=== PATIENT | female | born 1965 | race Caucasian/White ===

== ENCOUNTER 2022-08-30 16:09 | Outpatient (REF) | payer OTHER, SELFPAY ==
--- NOTE | ~2022-08-30 | XR_ITS ---
EXAMINATION: XR SHOULDER, LEFT CLINICAL INFORMATION: Pain left shoulder COMPARISON: None TECHNIQUE: AP external rotation, Grashey, scapular Y, and axillary views of the left shoulder. FINDINGS: No fracture or dislocation or destructive process. There is moderate narrowing of the left AC joint. XR/XR shoulder LT min 2V IMPRESSION: Mild degenerative change but no fracture.
[2022-08-30 16:23] LABS: MANUAL DIFF FLAG NO
[2022-08-30 16:58] LABS: Basophils Absolute Auto 0.1 X10*3/uL (0.0-0.2); Basophils Percent Auto 0.9 % (0-2); Eosinophils Absolute Auto 0.1 X10*3/uL (0.0-0.4); Eosinophils Percent Auto 1.6 % (0-4); Hematocrit 40.3 % (37.0-47.0); Hemoglobin 13.4 g/dl (12.0-16.0); Imm Gran Abs Auto 0.01 X10*3/uL (0.00-0.03); Imm Gran Pct Auto 0.1 % (0.0-0.4); Lymphocytes Absolute Auto 3.2 X10*3/uL (1.2-4.9); Lymphocytes Percent Auto 46.4 % (20-40); Mean Corpuscular HGB Conc 33.3 g/dl (31.0-35.0); Mean Corpuscular Hemoglobin 29.1 pg (27.0-33.0); Mean Corpuscular Volume 87.6 fL (80.0-98.0); Mean Platelet Volume 8.8 fL (9.4-12.3); Monocytes Absolute Auto 0.5 X10*3/uL (0.1-1.2); Monocytes Percent Auto 6.7 % (2-11); Neutrophils Percent Auto 44.3 % (45-73); Platelet Count 346 X10*3/uL (160-400); Red Cell Distribution Width 13.2 % (11.0-16.0); White Blood Count 6.8 X10*3/uL (4.8-10.8)
[2022-08-30 17:28] LABS: C Reactive Protein 0.06 mg/dL (< or = 0.50)
[2022-08-30 17:39] LABS: Erythrocyte Sedimentation Rate 7 MM/HR (0-20)
[2022-08-30 18:21] LABS: Creatinine Urine 66.32 mg/dL; Total Protein Urine Random < 7 mg/dL (<12)
== END 2022-08-30 16:10 | disposition home or self-care (01) ==
LOC: HO.LAB 16:09
PROVIDERS: Visit Provider Internal Medicine Rheumatology
DX: M35.01 Sjogren syndrome with keratoconjunctivitis (principal); M25.512 Pain in left shoulder
CPT/HCPCS: 36415; 73030; 84156; 85025; 85652; 86140

== ENCOUNTER 2023-08-29 15:01 | Outpatient (AMB) | payer OTHER, SELFPAY ==
[2023-08-29 15:03] VITALS: BP 100/90; PULSE 84; TEMP 36.4; O2SAT 95; BMI 30.3
--- NOTE | 2023-08-29 15:03 | MHC.OFFVIS ---
Intake Vital Signs 08/29/23 15:03 Height 5 ft 6 in Weight 187 lb 13.341 oz BMI 30.3 BP 100/90 H Blood Pressure Location Rt brachial Position Sitting Pulse 84 Pulse Source Pulse Oximeter Temp 97.5 F Temp Source Skin Pulse Oximetry (%) 95 Oxygen Delivery Method Room Air Intake Visit Reasons: sjogrens Intake Note: Patient presents today for yearly follow up on Sjogren's. Referred to GI at last visit, appt was cancelled by patient. Last seen by Dr. Edward 08/30/23. Client Coordinator Required: No Accompanied by: Self / Same As Patient Allergies amoxicillin Adverse Reaction (Unknown, Verified 08/29/23 15:10) Unknown clarithromycin Adverse Reaction (Unknown, Verified 08/29/23 15:10) Unknown Sulfa (Sulfonamide Antibiotics) Adverse Reaction (Unknown, Verified 08/29/23 15:10) Unknown Medication List - Last Reconciled 08/29/23 by Chris Edward MD cevimeline 1 cap PO TID cyclosporine 0.05% (Restasis) 1 drp ophthalmic (eye) BID estradiol 0.01%(0.1mg/gram) 1 g vaginal 2XW terconazole 0.4% 1 appful vaginal DAILY HPI HPI Comments History of Present Illness Details The patient presents today for evaluation of her sicca symptoms. She remains on cevimeline 30 mg t.i.d. and Restasis eyedrops. The eyes apparently help with this treatment but she still complains a lot of dryness in the mouth. She notes still difficulty swallowing solids. She feels like the food goes down very slowly, sometimes she has to help the food go down with some extra liquid. I referred her to GI last year after a barium swallow showed some degree of dysmotility. Finally she says she has an appointment this month to see GI. She is complaining only of some right lateral elbow pain. This seems to come on in the last few weeks. There was no injury involved. There is no redness or swelling. [facility] Medical History (Updated 08/29/23 @ 16:35 by Chris Edward MD) Sjogren's syndrome with keratoconjunctivitis sicca ALEXUS positive Surgical History Hx of lipoma Hx of section History of bilateral carpal tunnel release Family History Mother Diabetes Myocardial infarction Father Leukemia Social History Household Members: Spouse Housing: House Are you a primary health and social care teacher to a significant other at home: No Do you presently have visiting nurse or other home services: No 75 years or older and lives alone: No Alcohol intake: current Alcohol intake frequency: a few times a month Alcohol type: beer Patient Tobacco Use Status: Former Tobacco user Quit Date: 11/06/2010 Years Smoked: Quit 20 years ago service: No Current occupational status: employed Current occupation: utility bill collection clerk Review of Systems Const Details: She notes that she is having hot flashes attributed to menopause. Negative for appetite change, weight change, fever, chills, malaise and fatigue Eyes Details: Ocular dryness somewhat better with Restasis. Negative for vision change, headaches and dizziness ENT Details: Oral dryness continues but she still wants to stay with the cevimeline. She awaits the GI workup. Negative for hearing change, tinnitus, oral ulcer, nose bleeds. Card Details: Negative chest pain, edema and syncope Resp Details: Negative for SOB, cough and wheezing GI Details: Negative indigestion/heartburn, nausea, abdominal pain, bowel changes, diarrhea, constipation and bloody stool. Skin/Breast Details: Negative for itching, rash, hives, Raynaud's symptoms, sun sensitivity, and skin cancer Psych Details: Negative for anxiety, depression and stress Endo Details: Negative for polyuria and polydypsia Ronak/Lymph Details: Negative for excessive bruising or bleeding. Physical Exam Vital Signs: Last Vital Signs Temp 97.5 F 08/29/23 15:03 Pulse 84 08/29/23 15:03 BP 100/90 H 08/29/23 15:03 Pulse Ox 95 08/29/23 15:03 Oxygen Delivery Method Room Air 08/29/23 15:03 BMI result Body Mass Index 30.3 APPEARANCE: Patient in no acute distress EYES no redness in the conjunctiva or sclera region. There is no redness or scaling of the eyelids. They are not tender or swollen. The pupils equal and reactive to light or EARS: External ear normal, canal clear and tympanic membrane normal. NOSE/SINUS: Airflow through both nares, no nasal discharge, no bleeding THROAT: Oral mucosa moist, no ulcerations NECK: No thyromegaly or masses, no adenopathy, trachea midline. HEART: Regulrar rhythm, S1-S2 heard, no murmurs, rubs or gallops. LUNG: Clear to percussion and auscultation ABD: Normal bowel sounds, no organomegaly, masses or tenderness. EXTREMITIES: No edema, no calf tenderness, normal peripheral pulses. NEURO: Oriented and alert x3. No focal weakness. Reflexes symmetric. Gait normal. SKIN: No inflammatory or neoplastic lesions. Normal color and turgor JOINT EXAM:.?? Cervical Spine:.? Full range of motion without pain; no tenderness. Thoracic Spine:.? No scoliosis.? No tenderness on palpation. Lumbar Spine:.? Alignment normal.? Full range of motion without pain, no tenderness. Chest Wall:.? No tenderness, swelling, increased warmth or erythema. Hands:.? Normal pain-free range of motion without tenderness, swelling, increased warmth or erythema. Able to make a full fist and has a good employment law attorney strength. Wrists:.? Normal pain-free range of motion without tenderness, swelling, increased warmth or erythema. Elbows:. Right: Pain-free range of motion with some mild lateral epicondylar tenderness. No tenderness or swelling over the joint space. Left: Normal pain-free range of motion without tenderness, swelling, increased warmth or erythema. Shoulders: Left: Slight discomfort with abduction 180 degrees or with extremes of internal or external rotation. There is mild anterior tenderness without abductor weakness or adenopathy. Right:?? Full range of motion without pain. No tenderness, adenopathy, weakness, swelling, increased warmth or erythema. Hips:.? Full range of motion without pain. Hip bursa:.? Slight trochanteric tenderness. Knees:.?? Normal pain-free range of motion without tenderness, swelling, increased warmth or erythema.? There is no effusion or crepitation Ankles:.? Normal pain-free range of motion without tenderness, swelling, increased warmth or erythema. Feet:? Normal pain-free range of motion without tenderness, swelling, increased warmth or erythema. Tender points:? No tenderness to digital palpation at the occiput, trapezius, second rib, lateral epicondyle, knees, greater trochanter and gluteal area bilaterally. Results Reviewed Results Reviewed: Laboratory Tests 08/30/22 16:21 WBC 6.8 Hgb 13.4 Plt Count 346 ESR 7 Laboratory Tests 08/30/22 08/30/22 16:18 16:21 C-Reactive Protein 0.06 U Random Total Protein < 7 Assessment & Plan Assessment & Plan (1) ALEXUS positive: Comment: 2018 - 1:320, nucleolar pattern, negative Sjogren's antibodies. Negative anti DNA, negative ISAURO. 2014 CCP pos at 40 Code(s): R76.8 - Other specified abnormal immunological findings in serum (2) Sjogren's syndrome with keratoconjunctivitis sicca: Comment: Onset ~ 2015 -dry eyes and dry mouth. Positive ALEXUS and low titer positive CCP antibody but negative Sjogren's antibodies, anti-DNA, antiENa. On cevilemine 30 mg po 3x daily and on Restasis Previously on Xiidra - caused heartburn so it was stopped 12/19/2017 - 06/13 hydroxychloroquine not helpful Code(s): M35.01 - Sjogren syndrome with keratoconjunctivitis Plan Shew still isl with some dryness in the mouth in spite of the cevimeline. She had negative Sjogren's antibodies in the past but a positive ALEXUS. Eight years ago there was of mildly elevated CCP antibody. Today I only see some slight tenderness in the lateral epicondyle but no small joint synovitis to suggest rheumatoid arthritis. I encouraged her to follow through with the GI workup to investigate whether she has a dysmotility problem. The barium swallow did not suggest stricture or obstructive lesion last year. We will check for some markers of inflammation and renal function. She will continue with the cevimeline for now. A follow-up in a year seems reasonable. Orders: Orders Erythrocyte Sedimentation Rate Today M35.01 - Sjogren syndrome with keratoconjunctivitis, R76.8 - Other specified abnormal immunological findings in serum Complete Blood Count Auto Diff Today M35.01 - Sjogren syndrome with keratoconjunctivitis, R76.8 - Other specified abnormal immunological findings in serum Protein Creatinine Ratio, Ur Today M35.01 - Sjogren syndrome with keratoconjunctivitis, R76.8 - Other specified abnormal immunological findings in serum Creatinine Today M35. - Sjogren syndrome with keratoconjunctivitis C Reactive Protein Today M35. - Sjogren syndrome with keratoconjunctivitis, R76.8 - Other specified abnormal immunological findings in serum Medications: Refilled cevimeline 1 cap PO TID 270 caps 3RF M35. - Sjogren syndrome with keratoconjunctivitis Coding Level of Care Code Est Pt Level 3 (49407) Diagnoses ALEXUS positive R76.8 Sjogren's syndrome with keratoconjunctivitis sicca M35.01
== END 2023-08-29 15:39 | disposition home or self-care (01) ==
PROVIDERS: PCP Internal Medicine; Visit Provider Internal Medicine Rheumatology
DX: R76.8 Other specified abnormal immunological findings in serum (principal); M35.01 Sjogren syndrome with keratoconjunctivitis
CPT/HCPCS: 99213

== ENCOUNTER 2023-08-29 15:01 | Outpatient (REF) | payer OTHER, SELFPAY ==
[2023-08-29 16:15] LABS: MANUAL DIFF FLAG NO
[2023-08-29 16:34] LABS: Basophils Absolute Auto 0.1 X10*3/uL (0.0-0.2); Basophils Percent Auto 1.1 % (0-2); Eosinophils Absolute Auto 0.2 X10*3/uL (0.0-0.4); Eosinophils Percent Auto 2.3 % (0-4); Hematocrit 39.5 % (37.0-47.0); Lymphocytes Absolute Auto 3.2 X10*3/uL (1.2-4.9); Lymphocytes Percent Auto 48.4 % (20-40); Mean Corpuscular HGB Conc 32.9 g/dl (31.0-35.0); Mean Corpuscular Hemoglobin 29.2 pg (27.0-33.0); Mean Corpuscular Volume 88.8 fL (80.0-98.0); Mean Platelet Volume 8.8 fL (9.4-12.3); Monocytes Absolute Auto 0.6 X10*3/uL (0.1-1.2); Monocytes Percent Auto 8.6 % (2-11); Neutrophils Absolute Auto 2.6 x10*3/uL (2.0-8.3); Neutrophils Percent Auto 39.6 % (45-73); Platelet Count 326 X10*3/uL (160-400); Red Blood Count 4.45 X10*6/uL (4.20-5.50); Red Cell Distribution Width 13.2 % (11.0-16.0); White Blood Count 6.7 X10*3/uL (4.8-10.8)
[2023-08-29 16:48] LABS: C Reactive Protein < 0.10 mg/dL (< or = 0.50); Estimated Glomerular Filt Rate > 60
[2023-08-29 17:15] LABS: Erythrocyte Sedimentation Rate 6 MM/HR (0-20)
[2023-08-29 18:05] LABS: Creatinine Urine 40.06 mg/dL; Total Protein Urine Random < 7 mg/dL (<12)
== END 2023-08-29 15:02 | disposition home or self-care (01) ==
LOC: HO.LAB 15:01
PROVIDERS: PCP Internal Medicine; Visit Provider Internal Medicine Rheumatology
DX: R76.8 Other specified abnormal immunological findings in serum (principal); M35.01 Sjogren syndrome with keratoconjunctivitis
CPT/HCPCS: 36415; 82565; 82570; 84156; 85025; 85652; 86140

== ENCOUNTER 2023-09-05 08:34 | Outpatient (AMB) | payer OTHER, SELFPAY ==
--- NOTE | 2023-09-05 08:39 | A.OFFVIS_ITS ---
Intake Vital Signs 09/05/23 08:40 Height 5 ft 6 in Weight 184 lb BMI 29.7 BP 122/63 Blood Pressure Location Lt brachial Position Sitting Pulse 77 Intake Visit Reasons: Endoscopy consultation Intake Note: Patient presents to in office visit today as a new patient for EGD consult. CC:Patient reports she has trouble swallowing. She states that when she swallows she can feel her food sliding very slowly down through her esophagus . Onset about 2 years ago per PT. Pt had a Barium swallow done on 08/2022 at [facility]. She also reports heartburn, she states she takes Tums and this helps with her symptoms. Last colonoscopy on 2016 per PT. Allergies amoxicillin Adverse Reaction (Unknown, Verified 09/05/23 08:46) Unknown clarithromycin Adverse Reaction (Unknown, Verified 09/05/23 08:46) Unknown Sulfa (Sulfonamide Antibiotics) Adverse Reaction (Unknown, Verified 09/05/23 08:46) Unknown HPI Endoscopy consultation HPI Details 57 years old female with past medical hi story of cervical osteoarthritis, Sjogren's syndrome with keratoconjunctivitis sicca, seborrheic dermatitis, esophageal dysmotility is here today for initial consultation. Patient has seen a shoe cleaner for sjogren's syndrome was started on cevimeline the and Restasis. Patient reports that she has been having trouble swallowing solid food. Patient reports that specially when she eats bread she feels her he food going down her esophagus very slowly. Patient reports that she needs to drink lots of fluid in order for her to swallow. Patient reports heartburn with certain food he like tomato sauce. Patient denies having acid reflux, dyspepsia, odynophagia the. Patient denies any nausea or vomiting. Patient had barium swallow done that showed esophageal dysmotility, no acid reflux seen. [facility] Medical History Sjogren's syndrome with keratoconjunctivitis sicca ALEXUS positive Surgical History H/O colonoscopy Hx of lipoma Hx of section History of bilateral carpal tunnel release Family History Mother Diabetes Myocardial infarction Father Leukemia Sister Breast cancer Social History Household Members: Spouse Housing: House Are you a primary neonatal intensive care nurse to a significant other at home: No Do you presently have visiting nurse or other home services: No Alcohol intake: current Alcohol intake frequency: a few times a month Alcohol type: beer Patient Tobacco Use Status: Former Tobacco user Quit Date: 11/06/2010 Years Smoked: Quit 20 years ago service: No Current occupational status: employed Current occupation: production control clerk Review of Systems Const Denies weight gain and Denies weight loss ENT Reports no additional complaints, Reports dysphagia and Denies odynophagia Card Reports no additional complaints Resp Reports no additional complaints GI Denies abdominal pain, Denies belching, Denies melena, Denies bloating, Denies change in bowel habits, Reports dysphagia, Denies excessive flatus, Denies dyspepsia, Denies heartburn, Denies diarrhea, Denies loose stools, Denies nausea, Denies odynophagia and Denies vomiting Musc Reports no additional complaints Neuro Reports no additional complaints Psych Reports no additional complaints Endo Reports no additional complaints Physical Exam Vital Signs: Last Vital Signs Pulse 77 09/05/23 08:40 BP 122/63 09/05/23 08:40 BMI result Body Mass Index 29.7 Const General: healthy appearing, no acute distress and well developed Nutritional Appearance: well nourished Orientation/consciousness: patient oriented x3 HEENT Head: Yes normal to inspection, Yes normocephalic and Yes atraumatic Face and sinus: Yes normal facial exam Mouth: Normal oral and palatal mucosa present Throat: Yes posterior oropharynx normal, Yes tonsils normal and Yes uvula midline Eyes General: appearance normal, both eyes and all related structures Neck Neck: Yes normal visual inspection, Yes full ROM and Yes trachea midline Thyroid: Thyroid normal Resp Effort & Inspection: normal respiratory effort, able to speak in complete sentences, no tracheal deviation and symmetric chest movement Auscultation: clear to auscultation bilaterally Cardio Rate: regular rate GI Inspection: Yes normal to inspection and No distended Palpation (GI): Soft to palpation, not firm, nontender and No hepatosplenomegaly present Auscultation: normal bowel sounds General: Yes no CVA tenderness Back/Spine/Pelvis Back: no CVA tenderness Skin General skin exam: elasticity normal, turgor normal and dry skin Neuro General: patient oriented x3 Psych Appearance: grossly normal Mental Status: mental status grossly normal Affect: normal affect Assessment & Plan Assessment & Plan (1) Esophageal dysmotility: Code(s): K22.4 - Dyskinesia of esophagus (2) Heartburn: Code(s): R12 - Heartburn (3) Dysphagia: Code(s): R13.10 - Dysphagia, unspecified Qualifiers: Dysphagia type: pharyngoesophageal phase Qualified Code(s): R13.14 - Dysphagia, pharyngoesophageal phase Plan Occasional heartburn. Discussed with patient avoiding dietary triggers. Will start patient on omeprazole. Patient will be sent for upper endoscopy to rule out esophagitis, gastritis, Vang's, Schatzki ring, achalasia, patient might need to be sent for esophageal manometry. With a expect before during and after procedure discussed with patient. I will see patient after the procedure, sooner on as needed basis. Patient is agreeable to this plan and verbalizes understanding of instructions. She was given the opportunity to ask questions and all questions answered. Thank you for allowing me to participate in her care he Medications: New omeprazole 20 mg PO DAILY 30 caps 3RF K21.9 - Gastro-esophageal reflux disease without esophagitis Coding Level of Care Code New Pt Level 4 (62600) Diagnoses Esophageal dysmotility K22.4 Heartburn R12 Pharyngoesophageal dysphagia R13.14 Dysphagia type: pharyngoesophageal phase Time Spent (min) 45 Comment 30 minutes spent with patient and additional 15 minutes spent reviewing her records
[2023-09-05 08:40] VITALS: BP 122/63; PULSE 77; BMI 29.7
== END 2023-09-05 09:48 | disposition home or self-care (01) ==
PROVIDERS: PCP Internal Medicine; Visit Provider Nurse Practitioner Family
DX: K22.4 Dyskinesia of esophagus (principal); R12 Heartburn; R13.14 Dysphagia, pharyngoesophageal phase
CPT/HCPCS: 99204

== ENCOUNTER → 2023-09-05 08:34 | Outpatient (BNVA) | payer OTHER, SELFPAY | PROVIDERS: PCP Internal Medicine; Visit Provider Nurse Practitioner Family ==

== ENCOUNTER 2023-12-20 06:58 | Day surgery (SDC) | payer OTHER, SELFPAY ==
[2023-12-16 13:03] VITALS: BMI 29.7
--- NOTE | 2023-12-19 12:36 | P.CONAN_ITS ---
Documented by User: Chrissy Guillaume NP 12/19/23 12:36 HPI - Anesthesia Eval Consult details Narrative: 58yo F for Upper Endoscopy PMFSH Active Problems Active Problems: All Active Problems (Updated 12/16/23 @ 13:03 by Aneta Gil RN) Seborrheic dermatitis (Acute) Esophageal dysmotility (Acute) Shoulder pain, left (Acute) Cervical osteoarthritis (Acute) ALEXUS positive (Acute) Sjogren's syndrome with keratoconjunctivitis sicca (Acute) Past Medical History Medical History Esophageal dysmotility Osteoarthritis Sjogren's syndrome with keratoconjunctivitis sicca ALEXUS positive Family History Family History Mother Diabetes Myocardial infarction Father Leukemia Sister Breast cancer Surgical History Surgical History H/O colonoscopy Hx of lipoma Hx of section History of bilateral carpal tunnel release Social History Social History Household Members: Spouse Housing: House Are you a primary primary care provider to a significant other at home: No Do you presently have visiting nurse or other home services: No Alcohol intake: current Alcohol intake frequency: a few times a month Alcohol type: beer Patient Tobacco Use Status: Former Tobacco user Quit Date: 11/06/2010 Years Smoked: Quit 20 years ago Advance Directives: No Advance Directives Information Provided: Yes service: No Current occupational status: employed 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 Meds Allergies Allergy/AdvReac Type Severity Reaction Status Date / Time amoxicillin AdvReac Unknown Unknown Verified 12/20/23 07:15 clarithromycin AdvReac Unknown Unknown Verified 12/20/23 07:15 Sulfa (Sulfonamide AdvReac Unknown Unknown Verified 12/20/23 07:15 Antibiotics) Home Medications Medication Instructions Recorded Confirmed Last Taken Type cyclosporine 0.05 % eye drops in a 1 drp ophthalmic (eye) BID 08/23/22 12/20/23 Unknown History dropperette (Restasis) estradiol 0.01% (0.1 mg/gram) 1 g vaginal 2XW 08/23/22 12/20/23 Unknown History vaginal cream terconazole 0.4 % vaginal cream 1 appful vaginal DAILY 08/23/22 12/20/23 Unknown History cholecalciferol (vitamin D3) 50 50 mcg PO DAILY 09/05/23 12/20/23 Unknown History mcg (2,000 unit) capsule Exam Height,Weight and Vital Signs: Height 5 ft 6 in Weight 83.461 kg Assessment and Plan Assessment Anesthesia Assessment: Chart Reviewed Documented by User: Bairon Morris MD 12/20/23 07:37 PMFSH Past Medical History Medical History Esophageal dysmotility Osteoarthritis Sjogren's syndrome with keratoconjunctivitis sicca ALEXUS positive Family History Family History Mother Diabetes Myocardial infarction Father Leukemia Sister Breast cancer Family history of problems with anesthesia: No Surgical History Surgical History H/O colonoscopy Hx of lipoma Hx of section History of bilateral carpal tunnel release History of Problems with Anesthesia: No Social History Social History Household Members: Spouse Housing: House Are you a primary primary care provider to a significant other at home: No Do you presently have visiting nurse or other home services: No Alcohol intake: current Alcohol intake frequency: a few times a month Alcohol type: beer Patient Tobacco Use Status: Former Tobacco user Quit Date: 11/06/2010 Years Smoked: Quit 20 years ago Advance Directives: No Advance Directives Information Provided: Yes service: No Current occupational status: employed 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 Meds Allergies Allergy/AdvReac Type Severity Reaction Status Date / Time amoxicillin AdvReac Unknown Unknown Verified 12/20/23 07:15 clarithromycin AdvReac Unknown Unknown Verified 12/20/23 07:15 Sulfa (Sulfonamide AdvReac Unknown Unknown Verified 12/20/23 07:15 Antibiotics) Home Medications Medication Instructions Recorded Confirmed Last Taken Type cyclosporine 0.05 % eye drops in a 1 drp ophthalmic (eye) BID 08/23/22 12/20/23 Unknown History dropperette (Restasis) estradiol 0.01% (0.1 mg/gram) 1 g vaginal 2XW 08/23/22 12/20/23 Unknown History vaginal cream terconazole 0.4 % vaginal cream 1 appful vaginal DAILY 08/23/22 12/20/23 Unknown History cholecalciferol (vitamin D3) 50 50 mcg PO DAILY 09/05/23 12/20/23 Unknown Histor y mcg (2,000 unit) capsule Exam Airway Mallampati Class: II TM Dist: >3cm Neck ROM: Full Loose/Missing/Broken Teeth: No Heart: ok Lungs: ok Assessment and Plan Assessment Anesthesia Assessment: Anesthesia Plan Discussed Final Anesthetic Review Family History of Problems with Anesthesia: No History of Problems with Anesthesia: No NPO: Yes ASA Class: III Final Preanesthetic Review: No Changes in Pt Med Stat, Meds/Allgs Chart Reviewed, Consent Obtained/Reviewed and Anes Risks/Benef Reviewed Patient Risk: Intermediate Procedure Risk: Intermediate Anesthetic Plan Anesthetic Plan: Agree w/ Assess. and Plan and TIVA Disposition: Standard PACU
[2023-12-20 07:26] VITALS: BP 148/80; PULSE 79; RESP 16; TEMP 36.6; O2SAT 95
--- NOTE | 2023-12-20 07:32 | MHC.SHP ---
Pre-Procedural Eval Section A - 24 Hr Update-Section A only Date of Service: 12/20/23 Section B - Complete if H&P > 30 days Chief Complaint: Dysphagia, unspecified Relevant Family History (Specify if Yes): No Relevant Social History: None Present Medications: see Short Stay Collaborative assessment Medical History: Significant History (Esophageal dysmotility Osteoarthritis Sjogren's syndrome with keratoconjunctivitis sicca ALEXUS positive) History of Previous Operations: Relevant previous surgery/procedure and date(s) (H/O colonoscopy Hx of lipoma Hx of section History of bilateral carpal tunnel release) Allergies: Allergies Allergy/AdvReac Type Severity Reaction Status Date / Time amoxicillin AdvReac Unknown Unknown Verified 12/20/23 07:15 clarithromycin AdvReac Unknown Unknown Verified 12/20/23 07:15 Sulfa (Sulfonamide AdvReac Unknown Unknown Verified 12/20/23 07:15 Antibiotics) Review of Systems Sugical H&P ROS: Negative: Constitution, Cardiovascular, Respiratory, Neurological, Psychiatric, Hem-Onc, Allergic/Immunologic, Gastrointestinal, Genitourinary, Musculoskeletal, Integumentary, Endocrine and Eyes/Ears/Nose/Throat Exam Surgical H&P Exam: Normal: HEENT, Normal: Heart, Normal: Lungs, Normal: Extremities, Normal: Abdomen, Normal: Skin and Normal: Neurological Plan Diagnosis/Plan: Unchanged I have reviewed the history and physical and performed a pertinent physical examination on my patient. No changes have occurred unless specified. Time Spent With Patient Time: Total time managing care of this patient today ____ minutes.
[2023-12-20] MEDS: Lactated Ringers 1,000 ML 100 ML IVCONT (07:40)
--- NOTE | 2023-12-20 08:03 | W.PM.OPN ---
Operative Note Operative Note Date of Service: 12/20/23 Narrative: Procedure Description: EGD Indication: dysphagia Anesthesia: MAC FLEXIBLE TRANSORAL UPPER GASTROINTESTINAL ENDOSCOPY UPPER ENDOSCOPY Consent: Indications for the procedure and potential complications of bleeding, perforation, reaction to medications and missed diagnosis were discussed with the patient and informed consent was obtained. Instrument: Olympus GIF H 190 J mid size upper endoscope Monitoring: Vital signs and clinical assessment, continuous EKG monitoring, Pulse oximetry, Carbon Dioxide monitoring and blood pressure monitoring were done throughout the procedure. Procedure: The patient was placed in the left lateral decubitis position and pre-procedure medications were administered and a bite block was placed. The endoscope was inserted into the mouth and advanced under direct vision to the third part of duodenum. A careful inspection was made as the upper endoscope was withdrawn including a retroflexed examination of the proximal stomach; Findings and interventions are described below. Findings: Larynx:normal Esophagus: GE junction at 40 cm, diaphragm hiatus at 40 cm, normal mucosa--bx taken from GEJ, distal and proximal esophagus, balloon dilation done to 20 mm at UES and LES--no tears noted Stomach: streaky erythema . Biopsies were obtained. Grade 2 flap valve on retroflexed examination of the cardia. The pyloric outlet was very tight and heme was noted after passing the scope, ballon dilation done to 18 mm. Duodenum: Normal bulb and descending duodenum, Intervention: Biopsies as noted above, balloon dilation Impression/Findings: gastritis tight pylorus PLAN: cont with PPI GERD precautions if h pylori pos then treat
[2023-12-20 08:27] VITALS: BP 130/66; PULSE 73; RESP 18; TEMP 36.4; O2SAT 95
[2023-12-20 08:42] VITALS: BP 132/77; PULSE 67; RESP 16; TEMP 36.4; O2SAT 96
== END 2023-12-20 09:01 | disposition home or self-care (01) ==
PROVIDERS: PCP Internal Medicine; Visit Provider Internal Medicine Gastroenterology
PROC: 0DJ08ZZ Inspection of Upper Intestinal Tract, Via Natural or Artificial Opening Endoscopic (ICD-10-PCS; CPT 43235; principal; 2023-12-20 07:30)
DX: R13.14 Dysphagia, pharyngoesophageal phase (principal); K29.50 Unspecified chronic gastritis without bleeding; K21.9 Gastro-esophageal reflux disease without esophagitis; K31.1 Adult hypertrophic pyloric stenosis; K44.9 Diaphragmatic hernia without obstruction or gangrene; K22.4 Dyskinesia of esophagus; M47.812 Spondylosis without myelopathy or radiculopathy, cervical region; M35.01 Sjogren syndrome with keratoconjunctivitis; R76.0 Raised antibody titer; L21.9 Seborrheic dermatitis, unspecified; Z79.899 Other long term (current) drug therapy; Z88.1 Allergy status to other antibiotic agents; Z88.2 Allergy status to sulfonamides; Z87.891 Personal history of nicotine dependence
CPT/HCPCS: 43249; 43239; 88305; 88313; 88342; C1726; J2704

== ENCOUNTER → 2023-12-20 06:58 | Outpatient (BNV) | payer OTHER, SELFPAY | PROVIDERS: PCP Internal Medicine; Visit Provider Internal Medicine Gastroenterology | DX: K22.2 Esophageal obstruction (principal); K29.70 Gastritis, unspecified, without bleeding | CPT/HCPCS: 43239; 43249 ==

== ENCOUNTER 2024-01-03 11:44 | Outpatient (AMB) | payer OTHER, SELFPAY ==
--- NOTE | 2024-01-03 11:46 | A.OFFVIS_ITS ---
Vital Signs 01/03/24 11:47 Height 5 ft 6 in Weight 182 lb 15.739 oz BMI 29.5 BP 131/64 Blood Pressure Location Lt brachial Position Sitting Pulse 95 Intake Visit Reasons: s/p EGD Intake Note: Margarita presents in the office as a follow up EGD. CC: She states she is not having any new concerns at this time. Assistant Boiler Operator Required: No Allergies amoxicillin Adverse Reaction (Unknown, Verified 01/03/24 11:48) Unknown clarithromycin Adverse Reaction (Unknown, Verified 01/03/24 11:48) Unknown Sulfa (Sulfonamide Antibiotics) Adverse Reaction (Unknown, Verified 01/03/24 11:48) Unknown HPI HPI s/p EGD: Details: LAST VISIT: Esophageal dysmotility Heartburn Dysphagia Plan Occasional heartburn. Discussed with patient avoiding dietary triggers. Will start patient on omeprazole. Patient will be sent for upper endoscopy to rule out esophagitis, gastritis, Vang's, Schatzki ring, achalasia, patient might need to be sent for esophageal manometry. With a expect before during and after procedure discussed with patient. I will see patient after the procedure, sooner on as needed basis. Patient is agreeable to this plan and verbalizes understanding of instructions. She was given the opportunity to ask questions and all questions answered. ? Thank you for allowing me to participate in her care he Medications New omeprazole 20 mg PO DAILY 30 caps 3RF K21.9 ENDOSCOPY: Findings: Larynx:normal Esophagus: GE junction at 40 cm, diaphragm hiatus at 40 cm, normal mucosa--bx taken from GEJ, distal and proximal esophagus, balloon dilation done to 20 mm at UES and LES--no tears noted Stomach: streaky erythema . Biopsies were obtained. Grade 2 flap valve on retroflexed examination of the cardia. The pyloric outlet was very tight and heme was noted after passing the scope, ballon dilation done to 18 mm. Duodenum: Normal bulb and descending duodenum, Intervention: Biopsies as noted above, balloon dilation Impression/Findings: gastritis tight pylorus PLAN: cont with PPI GERD precautions if h pylori pos then treat PATHOLOGY: Diagnosis A. Stomach, biopsy: Gastric antral and body mucosa with mild reactive changes and minimal chronic inactive gastritis; negative for H pylori, intestinal metaplasia and dysplasia. B. Gastroesophageal junction, biopsy: Squamous and cardia-fundic mucosa with minimal chronic inflammation; negative for intestinal metaplasia and dysplasia. C. Esophagus, distal, biopsy: Squamous mucosa with no specific change; no columnar mucosa present. D. Esophagus, proximal, biopsy: Squamous mucosa with no specific change; no columnar mucosa present. TODAY'S VISIT: Patient is here today for follow-up and to discuss upper endoscopy results. Patient denies any ill effects from the anesthesia or procedure itself. Balloon dilation was done at you as and LES. Mild erythema in her stomach noted. Patient reports that she has been feeling okay. Frustrated with weight gain and inability to lose weight PFSH Medical History Esophageal dysmotility Osteoarthritis Sjogren's syndrome with keratoconjunctivitis sicca ALEXUS positive Surgical History (Updated 01/03/24 @ 11:46 by DANO Dean) History of esophagogastroduodenoscopy (EGD) H/O colonoscopy Hx of lipoma Hx of section History of bilateral carpal tunnel release Family History Mother Diabetes Myocardial infarction Father Leukemia Sister Breast cancer Social History Household Members: Spouse Housing: House Are you a primary livestock caretaker to a significant other at home: No Do you presently have visiting nurse or other home services: No 75 years or older and lives alone: No Alcohol intake: current Alcohol intake frequency: a few times a month Alcohol type: beer Patient Tobacco Use Status: Former Tobacco user Quit Date: 11/06/2010 Years Smoked: Quit 20 years ago service: No Current occupational status: employed Current occupation: front counter clerk Review of Systems Const Denies weight gain and Denies weight loss ENT Reports no additional complaints, Denies dysphagia and Denies odynophagia Card Reports no additional complaints Resp Reports no additional complaints GI Denies abdominal pain, Denies belching, Denies melena, Denies bloating, Denies change in bowel habits, Denies dysphagia, Denies excessive flatus, Denies dyspepsia, Denies heartburn, Denies diarrhea, Denies loose stools, Denies nausea, Denies odynophagia and Denies vomiting Musc Reports no additional complaints Neuro Reports no additional complaints Psych Reports no additional complaints Endo Reports no additional complaints Physical Exam Vital Signs: Last Vital Signs Pulse 95 01/03/24 11:47 BP 131/64 01/03/24 11:47 BMI result Body Mass Index 29.5 Const General: healthy appearing, no acute distress and well developed Nutritional Appearance: well nourished Orientation/consciousness: patient oriented x3 Resp Effort & Inspection: normal respiratory effort, able to speak in complete sentences, no tracheal deviation and symmetric chest movement Auscultation: clear to auscultation bilaterally Cardio Rate: regular rate GI Inspection: Yes normal to inspection and No distended Palpation (GI): Soft to palpation, not firm, nontender and No hepatosplenomegaly present Auscultation: normal bowel sounds General: Yes no CVA tenderness Back/Spine/Pelvis Back: no CVA tenderness Skin General skin exam: elasticity normal, turgor normal and dry skin Neuro General: patient oriented x3 Psych Appearance: grossly normal Mental Status: mental status grossly normal Affect: normal affect Assessment & Plan Assessment & Plan (1) Esophageal dysmotility: Code(s): K22.4 - Dyskinesia of esophagus Category: Medical (2) Heartburn: Code(s): R12 - Heartburn (3) Dysphagia: Code(s): R13.10 - Dysphagia, unspecified Qualifiers: Dysphagia type: unspecified Qualified Code(s): R13.10 - Dysphagia, unspecified Plan Patient will continue omeprazole daily. Avoid dietary triggers and late night snacking. Staying upright for minimum 3 hours after meals discussed with patient. Patient will try smaller meals and more often. Low FODMAP diet discussed with patient. Patient will eat more protein, avoid carbs and fat. Patient will follow-up in the office in 6 months, sooner on as needed basis. Patient is agreeable to this plan and verbalizes understanding of instructions. She was given the opportunity to ask questions and all questions answered. Thank you for allowing me to participate in her care
[2024-01-03 11:47] VITALS: BP 131/64; PULSE 95; BMI 29.5
== END 2024-01-03 12:41 | disposition home or self-care (01) ==
PROVIDERS: PCP Internal Medicine; Visit Provider Nurse Practitioner Family
DX: K22.4 Dyskinesia of esophagus (principal); R12 Heartburn; R13.10 Dysphagia, unspecified
CPT/HCPCS: 99213

== ENCOUNTER → 2024-01-03 11:44 | Outpatient (BNVA) | payer OTHER, SELFPAY | PROVIDERS: PCP Internal Medicine; Visit Provider Nurse Practitioner Family ==

== ENCOUNTER 2024-07-04 08:25 | Outpatient (AMB) | payer OTHER, SELFPAY ==
[2024-07-04 08:26] VITALS: BP 142/68; PULSE 80; O2SAT 98; BMI 30.5
--- NOTE | 2024-07-04 08:26 | A.OFFVIS_ITS ---
Vital Signs 07/04/24 08:26 Height 5 ft 6 in Weight 189 lb 2.506 oz BMI 30.5 BP 142/68 H Blood Pressure Location Lt brachial Position Sitting Pulse 80 Pulse Source Pulse Oximeter Pulse Oximetry (%) 98 Oxygen Delivery Method Room Air Intake Visit Reasons: 6 mnth follow up Intake Note: Margarita presents in office today for a scheduled 6 mos FUV. CC; Pt reports that they have been doing well since their last visit. Pt denies any new concerns or sx at this time. Pt reports that they may require a refill of the omeprazole but they cannot recall when it was last filled. Pt also wanted to discuss this medication as they were unsure what their correction care plan reflects. Global Marketing Manager Required: No Allergies amoxicillin Adverse Reaction (Unknown, Verified 07/04/24 08:26) Unknown clarithromycin Adverse Reaction (Unknown, Verified 07/04/24 08:26) Unknown Sulfa (Sulfonamide Antibiotics) Adverse Reaction (Unknown, Verified 07/04/24 08:26) Unknown HPI HPI 6 mnth follow up: Details: LAST VISIT: Esophageal dysmotility Heartburn Dysphagia Plan Patient will continue omeprazole daily. Avoid dietary triggers and late night snacking. Staying upright for minimum 3 hours after meals discussed with patient. Patient will try smaller meals and more often. Low FODMAP diet discussed with patient. Patient will eat more protein, avoid carbs and fat. Patient will follow-up in the office in 6 months, sooner on as needed basis. Patient is agreeable to this plan and verbalizes understanding of instructions. She was given the opportunity to ask questions and all questions answered. ? Thank you for allowing me to participate in her care TODAY'S VISIT: Patient is here today for follow-up. Patient states that she has been feeling better. No issues swallowing. Denies any dyspepsia, dysphagia or odynophagia. States that omeprazole has been working for her. Patient would like to see if she can stop taking it. Patient reports that she is frustrated as she is unable to lose weight. Patient wants to try Wegovy or Ozempic to help her lose 25 lb. Patient denies any GI symptoms today. [facility] Medical History Esophageal dysmotility Osteoarthritis Sjogren's syndrome with keratoconjunctivitis sicca ALEXUS positive Surgical History History of esophagogastroduodenoscopy (EGD) H/O colonoscopy Hx of lipoma Hx of section History of bilateral carpal tunnel release Family History Mother Diabetes Myocardial infarction Father Leukemia Sister Breast cancer Social History Household Members: Spouse Housing: House Are you a primary intensive care anaesthetist to a significant other at home: No Do you presently have visiting nurse or other home services: No 75 years or older and lives alone: No Alcohol intake: current Alcohol intake frequency: a few times a month Alcohol type: beer Patient Tobacco Use Status: Former Tobacco user Years Smoked: Quit 20 years ago service: No Current occupational status: employed Current occupation: fulfillment mail clerk Review of Systems Const Denies weight gain and Denies weight loss ENT Reports no additional complaints, Denies dysphagia and Denies odynophagia Card Reports no additional complaints Resp Reports no additional complaints GI Denies abdominal pain, Denies belching, Denies melena, Denies bloating, Denies change in bowel habits, Denies dysphagia, Denies excessive flatus, Denies dyspepsia, Denies heartburn, Denies diarrhea, Denies loose stools, Denies nausea, Denies odynophagia and Denies vomiting Musc Reports no additional complaints Neuro Reports no additional complaints Psych Reports no additional complaints Endo Reports no additional complaints Physical Exam Vital Signs: Last Vital Signs Pulse 80 07/04/24 08:26 BP 142/68 H 07/04/24 08:26 Pulse Ox 98 07/04/24 08:26 Oxygen Delivery Method Room Air 07/04/24 08:26 BMI result Body Mass Index 30.5 Const General: healthy appearing, no acute distress and well developed Nutritional Appearance: obese Orientation/consciousness: patient oriented x3 Resp Effort & Inspection: normal respiratory effort, able to speak in complete sentences, no tracheal deviation and symmetric chest movement Auscultation: clear to auscultation bilaterally Cardio Rate: regular rate GI Inspection: Yes normal to inspection, No distended and Yes obesity Palpation (GI): Soft to palpation, not firm, nontender and No hepatosplenomegaly present Auscultation: normal bowel sounds General: Yes no CVA tenderness Back/Spine/Pelvis Back: no CVA tenderness Skin General skin exam: elasticity normal, turgor normal and dry skin Neuro General: patient oriented x3 Psych Appearance: grossly normal Mental Status: mental status grossly normal Affect: normal affect Assessment & Plan Assessment & Plan (1) Esophageal dysmotility: Code(s): K22.4 - Dyskinesia of esophagus Category: Medical (2) Heartburn: Code(s): R12 - Heartburn (3) Dysphagia: Code(s): R13.10 - Dysphagia, unspecified Qualifiers: Dysphagia type: esophageal phase Qualified Code(s): R13.19 - Other dysphagia Plan Slow taper of omeprazole every 2 weeks skip 1 day. However if her symptoms return patient was encouraged to call the office or resume omeprazole daily. Patient will call our office if she will have any GI concerning symptoms otherwise will follow-up with us on as-needed that basis. Patient is agreeable to current plan of care and verbalizes understanding of instructions. She was given the opportunity to ask questions all questions answered. Thank you for allowing me to participate in her care Coding Level of Care Code Est Pt Level 3 (71226) Diagnoses Esophageal dysmotility K22.4 Heartburn R12 Esophageal dysphagia R13.19 Dysphagia type: esophageal phase Time Spent (min) 25 Comment 15 minutes spent with patient and additional 10 minutes spent reviewing her records
== END 2024-07-04 09:14 | disposition home or self-care (01) ==
PROVIDERS: PCP Internal Medicine; Visit Provider Nurse Practitioner Family
DX: K22.4 Dyskinesia of esophagus (principal); R12 Heartburn; R13.19 Other dysphagia
CPT/HCPCS: 99213

== ENCOUNTER → 2024-07-04 08:25 | Outpatient (BNVA) | payer OTHER, SELFPAY | PROVIDERS: PCP Internal Medicine; Visit Provider Nurse Practitioner Family ==

== ENCOUNTER 2024-08-30 08:06 | Outpatient (AMB) | payer OTHER, SELFPAY ==
--- NOTE | 2024-08-30 08:08 | A.OFFVIS_ITS ---
Vital Signs 08/30/24 08:12 Height 5 ft 6 in Weight 190 lb 4.143 oz BMI 30.7 BP 122/70 Blood Pressure Location Lt brachial Position Sitting Respiration 16 Pulse 86 Pulse Source Pulse Oximeter Pulse Oximetry (%) 98 Intake Visit Reasons: sjogrens Intake Note: Patient presents for Sjogrens. Allergies amoxicillin Adverse Reaction (Unknown, Verified 08/30/24 08:11) Unknown clarithromycin Adverse Reaction (Unknown, Verified 08/30/24 08:11) Unknown Sulfa (Sulfonamide Antibiotics) Adverse Reaction (Unknown, Verified 08/30/24 08:11) Unknown Medication List - Last Reconciled 08/30/24 by Alayna Nunez MD cevimeline 1 cap PO TID cholecalciferol (vitamin D3) 50 mcg PO DAILY cyclosporine 0.05% (Restasis) 1 drp ophthalmic (eye) Q12H estradiol 0.01%(0.1mg/gram) 1 g vaginal 2XW estradiol 1 patch transdermal QWEEK omeprazole 20 mg PO DAILY ondansetron HCl mg PO progesterone micronized 50 mg PO QAM terconazole 0.4% 1 appful vaginal DAILY HPI Comments Details: Patient is a 58-year-old female with no chronic medical illnesses who is here today for follow up for chronic sicca symptoms in the setting of positive ALEXUS, presumed Sjogren's disease Interval History: Patient last seen 08/29/[address] Chris Edward. At that time patient was overall stable she still had complaints the mouth and difficulty swallowing even on cevimeline and she had a GI studies which showed some level of dysmotility. She was also complaining of elbow pain but this was not attributed to any underlying inflammatory arthritis. Today she reports continued dry eyes and dry mouth. Currently on hormone replacement therapy (topical) for vaginal dryness Denies weightloss. Has night sweats which she attributes to hot flashes. Denies swollen lymph nodes, swollen parotid glands Denies prolonged Am stiffness however complains of pain to her 2nd digit at the level of the MCP. Has some swelling but this occurs at the end of the day. Rheumatologic History: Onset ~ 2015 -dry eyes, dry mouth, and vaginal dryness. Positive ALEXUS and low titer positive CCP antibody but negative Sjogren's antibodies, anti-DNA, antiENa. On cevilemine 30 mg po 3x daily and on Restasis Previously on Xiidra - caused heartburn so it was stopped 12/19/2017 - 06/13 hydroxychloroquine not helpful Current Rheumatology Medication(s): Cevemiline 30mg TID Restasis PFSH Medical History Esophageal dysmotility Osteoarthritis Sjogren's syndrome with keratoconjunctivitis sicca ALEXUS positive Surgical History History of esophagogastroduodenoscopy (EGD) H/O colonoscopy Hx of lipoma Hx of section History of bilateral carpal tunnel release Family History Mother Diabetes Myocardial infarction Father Leukemia Sister Breast cancer Social History Household Members: Spouse Housing: House Are you a primary manager home healthcare to a significant other at home: No Do you presently have visiting nurse or other home services: No 75 years or older and lives alone: No Alcohol intake: current Alcohol intake frequency: a few times a month Alcohol type: beer Patient Tobacco Use Status: Former Tobacco user Years Smoked: Quit 20 years ago service: No Current occupational status: employed Current occupation: route delivery clerk Review of Systems Const Details: Review of Systems Constitutional: Denies fever, chills, weight loss ENT: Denies vision changes, eye pain or eye redness, dental caries, dry mouth GI: Denies nausea, vomiting, diarrhea, abdominal pain, change in BM Pulm: Denies SOB, GIVENS, hemoptysis, wheezing Cards: Denies chest pain, palpitations Skin: Denies Raynaud's, rash, nail changes, photosensitivity, HOME HEALTH OUTREACH COORDINATOR: Denies headaches, weakness, paresthesias, recurrent falls MSK: as per HPI All other systems reviewed and are unremarkable except noted above Physical Exam Vital Signs: Last Vital Signs Pulse 86 08/30/24 08:12 Resp 16 08/30/24 08:12 BP 122/70 08/30/24 08:12 Pulse Ox 98 08/30/24 08:12 BMI result Body Mass Index 30.7 Physical Examination CONSTITUITIONAL Patient alert and cooperative. Well appearing and in no apparent painful distress HEENT Conjunctiva and sclera clear. ?Pupils equal round and reactive to light. ?No lymphadenopathy. ? CHEST/RESPIRATORY SYSTEM Normal respiratory effort and able to speak in complete sentences. ?Clear to auscultation bilaterally. ?No crackles, rales, rhonchi, wheezes heard. CARDIAC SYSTEM Regular rate and rhythm. ?S1 and S2 heard no murmurs. ?Radial pulses intact bilaterally MSK Hands: ?Good colon therapist strength bilaterally. ?No deformities noted. ?No synovitis noted to the MCPs, PIPs or DIPs. ?No tenderness to palpation of these joints. Wrists: ?Full range of motion at the wrists without pain. ?No tenderness to palpation or synovitis noted to the wrists. Elbows: Full range of motion without pain. No tenderness, weakness, swelling, increased warmth or erythema. Shoulders: Full range of motion without pain. No tenderness, weakness, swelling, increased warmth or erythema. Hips: Full range of motion without pain. Knees: ?Full range of motion. ?No tenderness, swelling, increased warmth or erythema.?No effusion or crepitations Ankles: Full range of motion. ?No tenderness, swelling, increased warmth or erythema.? Feet: ?Negative squeeze test. ?No tenderness to palpation or swelling of the MTPs. SKIN Skin intact without rashes. Normal nailfold capillaries Results Reviewed Results Reviewed: Laboratory Tests 08/29/23 16:13 WBC 6.7 RBC 4.45 Hgb 13.0 Hct 39.5 Plt Count 326 ESR 6 Creatinine 0.76 C-Reactive Protein < 0.10 Assessment & Plan Assessment & Plan (1) Sjogren's syndrome with keratoconjunctivitis sicca: Comment: Onset ~ 2015 -dry eyes and dry mouth. Positive ALEXUS and low titer positive CCP antibody but negative Sjogren's antibodies, anti-DNA, antiENa. On cevilemine 30 mg po 3x daily and on Restasis Previously on Xiidra - caused heartburn so it was stopped 12/19/2017 - 06/13 hydroxychloroquine not helpful Code(s): M35.01 - Sjogren syndrome with keratoconjunctivitis Category: Medical Plan: #Presumed Sjogrens Syndrome Patient with presumed Sjogrens based on dry eyes, dry mouth and positive ALEXUS. SSA and SSB antibodies have been negative in the past. Patient has never had ENT evaluation or lip biopsy Ideally I would want to do a lip biopsy staining also for IgG4 but at this point given she has no extraglandular manifesations, and the biopsy results would not necessarily wealth management director will hold off. No other extraglandular manifestations. Plan - Check CBC, CMP, RF, C3, C4, RF, SPEP, ANGELICA, IgG subclasses, Immunoglobulins - Check Hand and wrist XRs to eval right 2nd MCP pain - RTC 1 year, sooner if concerning symptoms arise Plan I spent 35 minutes reviewing the record and labs, seeing the patient, discussing the treatment plan and documenting in the medical record ? Orders: Orders Erythrocyte Sedimentation Rate Today M35.01 - Sjogren syndrome with keratoconjunctivitis, R76.8 - Other specified abnormal immunological findings in serum Rheumatoid Factor Today M35.01 - Sjogren syndrome with keratoconjunctivitis, R76.8 - Other specified abnormal immunological findings in serum Protein Electrophoresis, Serum Today M35. - Sjogren syndrome with keratoconjunctivitis, R76.8 - Other specified abnormal immunological findings in serum Complement C3 Today M35.01 - Sjogren syndrome with keratoconjunctivitis, R76.8 - Other specified abnormal immunological findings in serum Complement C4 Today M35.01 - Sjogren syndrome with keratoconjunctivitis, R76.8 - Other specified abnormal immunological findings in serum Complete Blood Count Auto Diff Today M35.01 - Sjogren syndrome with keratoconjunctivitis, R76.8 - Other specified abnormal immunological findings in serum Comprehensive Met. Panel Today M35.01 - Sjogren syndrome with keratoconjunctivitis, R76.8 - Other specified abnormal immunological findings in serum C Reactive Protein Today M35.01 - Sjogren syndrome with keratoconjunctivitis, R76.8 - Other specified abnormal immunological findings in serum Immunofixation Pnl, Serum Today M35.01 - Sjogren syndrome with keratoconjunctivitis, R76.8 - Other specified abnormal immunological findings in serum Sjogren's Antibodies Today M35.01 - Sjogren syndrome with keratoconjunctivitis, R76.8 - Other specified abnormal immunological findings in serum XR hand wrist RT Today M35.01 - Sjogren syndrome with keratoconjunctivitis, R76.8 - Other specified abnormal immunological findings in serum XR hand wrist LT Today M35. - Sjogren syndrome with keratoconjunctivitis, R76.8 - Other specified abnormal immunological findings in serum Immunoglobulin G Subclasses Today M3. - Sjogren syndrome with keratoconjunctivitis Immunoglobulins,IgG IgA IgM Today M35. - Sjogren syndrome with keratoconjunctivitis Medications: Changed From cevimeline 1 cap PO TID 270 caps 3RF M35. - Sjogren syndrome with keratoconjunctivitis To cevimeline 1 cap PO TID 90 days 270 caps 4RF M35. - Sjogren syndrome with keratoconjunctivitis Coding Level of Care Code Est Pt Level 4 (62166) Complex EM visit Add On G2211 Diagnoses Sjogren's syndrome with keratoconjunctivitis sicca M3.
[2024-08-30 08:12] VITALS: BP 122/70; PULSE 86; RESP 16; O2SAT 98; BMI 30.7
== END 2024-08-30 08:46 | disposition home or self-care (01) ==
PROVIDERS: PCP Internal Medicine; Visit Provider Student in an Organized Health Care Education/Training Program
DX: M35.01 Sjogren syndrome with keratoconjunctivitis (principal)
CPT/HCPCS: 99214

== ENCOUNTER 2024-08-30 08:06 | Outpatient (REF) | payer OTHER, SELFPAY ==
[2024-08-30 09:08] LABS: MANUAL DIFF FLAG NO
[2024-08-30 09:24] LABS: Basophils Absolute Auto 0.1 X10*3/uL (0.0-0.2); Basophils Percent Auto 1.4 % (0-2); Eosinophils Absolute Auto 0.1 X10*3/uL (0.0-0.4); Hematocrit 41.7 % (37.0-47.0); Imm Gran Abs Auto 0.01 X10*3/uL (0.00-0.03); Imm Gran Pct Auto 0.2 % (0.0-0.4); Lymphocytes Absolute Auto 2.2 X10*3/uL (1.2-4.9); Lymphocytes Percent Auto 42.7 % (20-40); Mean Corpuscular HGB Conc 33.6 g/dl (31.0-35.0); Mean Corpuscular Hemoglobin 29.2 pg (27.0-33.0); Mean Corpuscular Volume 86.9 fL (80.0-98.0); Mean Platelet Volume 8.5 fL (9.4-12.3); Monocytes Absolute Auto 0.4 X10*3/uL (0.1-1.2); Monocytes Percent Auto 7.6 % (2-11); Neutrophils Absolute Auto 2.4 x10*3/uL (2.0-8.3); Neutrophils Percent Auto 46.1 % (45-73); Platelet Count 364 X10*3/uL (160-400); Red Cell Distribution Width 13.4 % (11.0-16.0); White Blood Count 5.1 X10*3/uL (4.8-10.8)
[2024-08-30 09:52] LABS: Alanine Aminotransferase 21 U/L (0-31); Albumin Level 4.3 g/dL (3.5-5.0); Alkaline Phosphatase 59 U/L (39-117); Anion Gap 12 (12-20); Aspartate Amino Transferase 21 U/L (5-31); Bilirubin Total 0.7 mg/dL (0.0-1.0); Blood Urea Nitrogen 12 mg/dL (9-16); C Reactive Protein < 0.10 mg/dL (< or = 0.50); Calcium 9.1 mg/dL (8.4-10.2); Carbon Dioxide 24 mmol/L (22-29); Chloride 108 mmol/L (96-108); Estimated Glomerular Filt Rate > 60; Glucose Random 95 mg/dL (60-115); Potassium 4.3 mmol/L (3.3-5.1); Sodium 140 mmol/L (135-145); Total Protein 7.4 g/dL (6.5-8.0)
[2024-08-30 10:10] LABS: Erythrocyte Sedimentation Rate 6 MM/HR (0-20)
[2024-08-30 11:02] LABS: Rheumatoid Factor < 13.0 IU/mL (<15.0)
[2024-08-31 14:23] LABS: Complement C3 134 mg/dL (83-193)
[2024-09-03 12:54] LABS: Prot Elec - Albumin 4.5 g/dL (3.8-4.8); Prot Elec - Alpha1 0.2 g/dL (0.2-0.3); Prot Elec - Alpha2 0.6 g/dL (0.5-0.9); Prot Elec - Beta 1 0.5 g/dL (0.4-0.6); Prot Elec - Beta 2 0.4 g/dL (0.2-0.5); Prot Elec - Gamma 1.1 g/dL (0.8-1.7); Prot Elec - Total Protein 7.2 g/dL (6.1-8.1)
[2024-09-03 22:29] LABS: Antibody to SS-A Antigen <1.0 NEG AI (<1.0 NEG); Antibody to SS-B Antigen <1.0 NEG AI (<1.0 NEG)
[2024-09-04 18:13] LABS: IgA 231 mg/dL (47-310); IgG 1222 mg/dL (600-1640); IgM 71 mg/dL (50-300)
== END 2024-08-30 08:07 | disposition home or self-care (01) ==
LOC: HO.XRAY 08:06
PROVIDERS: PCP Internal Medicine; Visit Provider Student in an Organized Health Care Education/Training Program
DX: M35.01 Sjogren syndrome with keratoconjunctivitis (principal); R76.8 Other specified abnormal immunological findings in serum
CPT/HCPCS: 36415; 80053; 82784; 84165; 85025; 85652; 86140; 86160; 86235; 86334; 86431

== ENCOUNTER 2025-08-30 07:55 | Outpatient (AMB) | payer OTHER, SELFPAY ==
--- NOTE | 2025-08-30 07:59 | MHC.OFFVIS ---
Vital Signs 08/30/25 08:05 Height 5 ft 6 in Weight 167 lb 15.876 oz BMI 27.1 BP 130/82 Blood Pressure Location Lt brachial Position Sitting Pulse 64 Pulse Source Pulse Oximeter Pulse Oximetry (%) 99 Oxygen Delivery Method Room Air Intake Visit Reasons: FOLLOW UP Intake Note: Patient presents for Sjogrens follow up. 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 Accompanied by: Self / Same As Patient Allergies amoxicillin Adverse Reaction (Unknown, Verified 08/30/25 08:05) Unknown clarithromycin Adverse Reaction (Unknown, Verified 08/30/25 08:05) Unknown Sulfa (Sulfonamide Antibiotics) Adverse Reaction (Unknown, Verified 08/30/25 08:05) Unknown Medication List - Last Reconciled 08/30/25 by Alayna Nunez MD cevimeline 1 cap PO TID 90 days cholecalciferol (vitamin D3) 50 mcg PO DAILY cyclosporine 0.05% (Restasis) 1 drp ophthalmic (eye) Q12H estradiol 0.01%(0.1mg/gram) 1 g vaginal 2XW estradiol 1 patch transdermal QWEEK omeprazole 20 mg PO DAILY ondansetron HCl mg PO progesterone micronized 50 mg PO QAM semaglutide (weight loss) (Wegovy) 2.4 mg subcut QWEEK terconazole 0.4% 1 appful vaginal DAILY HPI Comments Details: Patient is a 59-year-old female with no chronic medical illnesses who is here today for follow up for chronic sicca symptoms in the setting of positive ALEXUS, presumed Sjogren's disease Interval History: Patient last seen 08/30/24 with me - On cevemiline 30mg tid - she reports continued dry eyes and dry mouth. Currently on hormone replacement therapy (topical) for vaginal dryness - Denies weightloss. Has night sweats which she attributes to hot flashes. Denies swollen lymph nodes, swollen parotid glands - Denies prolonged AM stiffness however complains of pain to her 2nd digit at the level of the MCP. Has some swelling but this occurs at the end of the day. Today - On cevemiline 30mg tid - She has a history of a positive ALEXUS, but her SSA and SSB antibodies have consistently been negative. - The diagnosis is presumed based on her symptoms of dry mouth and dry eyes. - She reports her condition is stable, and she takes cevimeline which helps with her symptoms. - She is also on hormone replacement therapy, which she feels has been beneficial, although it has not changed her sicca symptoms. - Additionally, she started Wegovy last year for weight loss and has recently added a zinc supplement due to a low zinc level. - Regarding new issues, she experienced an injury to her knee, and an MRI confirmed a torn medial meniscus. - She has consulted with a surgeon and plans to have the knee surgically repaired in October. - She also reports bilateral thumb joint pain, which she attributes to age and osteoarthritis. Rheumatologic History: Onset ~ 2015 -dry eyes, dry mouth, and vaginal dryness. Positive ALEXUS and low titer positive CCP antibody but negative Sjogren's antibodies, anti-DNA, antiENa. On cevilemine 30 mg po 3x daily and on Restasis Previously on Xiidra - caused heartburn so it was stopped 12/19/2017 - 06/13 hydroxychloroquine not helpful Current Rheumatology Medication(s): Cevemiline 30mg TID Restasis PFSH Medical History Esophageal dysmotility Osteoarthritis Sjogren's syndrome with keratoconjunctivitis sicca ALEXUS positive Surgical History History of esophagogastroduodenoscopy (EGD) H/O colonoscopy Hx of lipoma Hx of section History of bilateral carpal tunnel release Family History Mother Diabetes Myocardial infarction Father Leukemia Sister Breast cancer Social History Household Members: Spouse Housing: House Are you a primary physician locums urgent care to a significant other at home: No Do you presently have visiting nurse or other home services: No 75 years or older and lives alone: No Alcohol intake: current Alcohol intake frequency: a few times a month Alcohol type: beer Patient Tobacco Use Status: Former Tobacco user Years Smoked: Quit 20 years ago service: No Current occupational status: employed Current occupation: clerk of [employer] Review of Systems Narrative Review of Systems - General: Reports feeling stable. - Eyes: Reports dry eyes. - ENT/Mouth: Reports dry mouth, which is noticeable if she does not take her medication. - Musculoskeletal: Reports recent right knee pain following an injury. - She also reports bilateral thumb joint pain. All other systems reviewed and are unremarkable except noted above Physical Exam Exam Exam: Vital signs reviewed Physical Examination CONSTITUITIONAL Patient alert and cooperative. Well appearing and in no apparent painful distress MSK Hands Right Hand: Able to make a fist. No swelling or tenderness to palpation of the MCPs, PIPs or DIPs. Left Hand: Able to make a fist. No swelling or tenderness to palpation of the MCPs, PIPs or DIPs. Bilateral 1st CMC positive grinding test. TTP of the 1st CMC Wrists Right Wrist: Full ROM to flexion and extension. No swelling or TTP Left Wrist: Full ROM to flexion and extension. No swelling or TTP Elbows Right Elbow: Full ROM. No swelling or TTP. No TTP of the medial epicondyle. No TTP of the lateral epicondyle Left Elbow: Full ROM. No swelling or TTP. No TTP of the medial epicondyle. No TTP of the lateral epicondyle Shoulders Right shoulder: Full ROM. No swelling noted. No TTP of the AC joint. No TTP of the subacromial bursa. No TTP of the posterior shoulder Left shoulder: Full ROM. No swelling noted. No TTP of the AC joint. No TTP of the subacromial bursa. No TTP of the posterior shoulder Knees Right knee: Full ROM. No swelling noted. TTP of the knee joint line (tamara the lateral side). No TTP of pes anserine bursa Left knee: Full ROM. No swelling noted. No TTP of the knee joint line. No TTP of pes anserine bursa. Ankles Right ankle: Good ankle dorsiflexion and plantar flexion. No swelling. No TTP of the ankle joint Left ankle: Good ankle dorsiflexion and plantar flexion. No swelling. No TTP of the ankle joint Feet Right foot: Negative squeeze test Left foot: Negative squeeze test Tender points? No tenderness to palpation of the bilateral trapezius, supraspinatus, anterior costochondral junctions, bilateral suboccipital muscle insertions SKIN No rashes Vital Signs: Last Vital Signs Pulse 64 08/30/25 08:05 BP 130/82 08/30/25 08:05 Pulse Ox 99 08/30/25 08:05 Oxygen Delivery Method Room Air 08/30/25 08:05 BMI result Body Mass Index 27.1 Results Reviewed Results Reviewed: Laboratory Tests 08/30/24 08/07/25 09:07 Mary Sodium 140 137 Potassium 4.3 4.1 Chloride 108 107 Carbon Dioxide 24 24 BUN 12 9 Creatinine 0.85 0.7 AST 21 13 ALT 21 22 C-Reactive Protein < 0.10 PEP Interpretation SEE NOTE Vit D 34.7 MR Right Knee w/o contrast 04/2025 Findings: Menisci: Horizontal signal involving the body and posterior horn of the medial meniscus in keeping with horizontal meniscal tearing. Lateral meniscus is intact Ligaments: Minimal grade 1 MCL sprain. ACL, PCL and LCL complex are intact Tendons: Quadriceps tendon enthesophyte formation with mild proximal quadriceps tendinosis. Mild proximal patellar tendinosis. Popliteus tendon is intact. Bones: Cystic change along the lateral tibial spine. Mild bone marrow edema along the posterior portion of the medial tibial plateau. Cartilage: Patellofemoral - superficial and deep fissuring along the medial patellar facet with underlying cystic change. Deep cartilage fissuring the junction of the lateral patellar facet and median ridge with underlying cystic change. Medial tibifemoral - mild cartilage thinning involving the posterior portion of the medial tibial plateau Lateral tibifemoral - preserved Misc: Right knee joint effusion with mild synovitis. Mild edema in the superolateral aspect of Hoffa's fat pad. Small amount of fluid in the deep infrapatellar bursa. Medial plica Assessment & Plan Assessment & Plan (1) Sjogren's syndrome with keratoconjunctivitis sicca: Comment: Onset ~ 2015 -dry eyes and dry mouth. Positive ALEXUS and low titer positive CCP antibody but negative Sjogren's antibodies, anti-DNA, antiENa. On cevilemine 30 mg po 3x daily and on Restasis Previously on Xiidra - caused heartburn so it was stopped 12/19/2017 - 06/13 hydroxychloroquine not helpful Code(s): M35.01 - Sjogren syndrome with keratoconjunctivitis Category: Medical Plan: #Presumed Sjogrens Syndrome patient is a 49-year-old female with a presumed diagnosis of Sjogren's syndrome based on sicca symptoms, despite negative SSA/SSB antibodies. She will continue taking cevimeline for symptomatic relief of dry mouth. A 90-day supply with refills will be ordered. Annual blood work will be performed to monitor for the 1-5% risk of conversion to lymphoma associated with Sjogren's syndrome. Plan - Cevimeline 1 cap TID - RTC 1 year, sooner if concerning symptoms arise - Labs before visit: CBC, CMP, RF, C3, C4, RF, SPEP, Immunoglobulins (2) Tear of medial meniscus of right knee: Code(s): S83.241A - Other tear of medial meniscus, current injury, right knee, initial encounter Qualifiers: Tear current or old: current Encounter type: initial encounter Meniscus tear of knee type: peripheral Qualified Code(s): S83.221A - Peripheral tear of medial meniscus, current injury, right knee, initial encounter Plan: #Medial menisal tear of right knee The patient has an MRI-confirmed horizontal tear of the medial meniscus. She has seen a surgeon and will proceed with scheduling a surgical repair, likely in October. No rheumatologic intervention is planned for this acute issue. (3) Knee osteoarthritis: Code(s): M17.9 - Osteoarthritis of knee, unspecified Qualifiers: Osteoarthritis type: primary Laterality: bilateral Qualified Code(s): M17.0 - Bilateral primary osteoarthritis of knee Plan: #Knee OA The patient has mild osteoarthritis of the right knee, particularly on the medial side, contributing to effusion and inflammation as seen on MRI. This will be addressed concurrently during her planned surgical intervention for the meniscal tear. Plan I discussed with the patient that we will continue to manage her for presumed Sjogren's syndrome based on her clinical symptoms of dry eyes and mouth, despite her negative SSA/SSB antibody tests. I explained the necessity of yearly blood work to monitor for a potential, though small (1-5%), risk of developing lymphoma, which is associated with Sjogren's syndrome. We reviewed the findings of her recent right knee MRI, confirming a meniscal tear and also noting evidence of mild osteoarthritis, which is contributing to her knee inflammation. I confirmed that the plan is to continue her cevimeline prescription, and I will submit a 90-day supply with refills. We noted that her recent comprehensive metabolic panel was already completed, so we do not need to repeat that lab test. I spent 30 minutes reviewing the record and labs, seeing the patient, discussing the treatment plan and documenting in the medical record Orders: Orders Complete Blood Count Auto Diff 1 Year M35.00 - Sjogren syndrome, unspecified Rheumatoid Factor 1 Year M35.00 - Sjogren syndrome, unspecified Erythrocyte Sedimentation Rate 1 Year M35.00 - Sjogren syndrome, unspecified Complement C3 1 Year M35. - Sjogren syndrome, unspecified Complete Blood Count Auto Diff Today M35. - Sjogren syndrome, unspecified Complement C4 Today M35. - Sjogren syndrome, unspecified Rheumatoid Factor Today M35. - Sjogren syndrome, unspecified Complement C3 Today M35. - Sjogren syndrome, unspecified Complement C4 1 Year M35. - Sjogren syndrome, unspecified C Reactive Protein 1 Year M35. - Sjogren syndrome, unspecified Protein Electrophoresis, Serum 1 Year M35. - Sjogren syndrome, unspecified Comprehensive Met. Panel 1 Year M3. - Sjogren syndrome, unspecified C Reactive Protein Today M3. - Sjogren syndrome, unspecified Erythrocyte Sedimentation Rate Today M3. - Sjogren syndrome, unspecified Protein Electrophoresis, Serum Today . - Sjogren syndrome, unspecified Medications: Refilled cevimeline 1 cap PO TID 270 caps 4RF 90 days . - Sjogren syndrome with keratoconjunctivitis Coding Level of Care Code Est Pt Level 4 (54712) Complex visit Add On G2211 Diagnoses Sjogren's syndrome with keratoconjunctivitis sicca M35. Peripheral tear of medial meniscus of right knee as current injury, initial encounter S83.221A Tear current or old: current Encounter type: initial encounter Meniscus tear of knee type: peripheral Primary osteoarthritis of both knees M17.0 Osteoarthritis type: primary Laterality: bilateral
[2025-08-30 08:05] VITALS: BP 130/82; PULSE 64; O2SAT 99; BMI 27.1
== END 2025-08-30 08:39 | disposition home or self-care (01) ==
LOC: HO.RHES 07:55
PROVIDERS: PCP Internal Medicine; Visit Provider Student in an Organized Health Care Education/Training Program
DX: M35.01 Sjogren syndrome with keratoconjunctivitis (principal); S83.221A Peripheral tear of medial meniscus, current injury, right knee, initial encounter; M17.0 Bilateral primary osteoarthritis of knee
CPT/HCPCS: 99214

== ENCOUNTER 2025-08-30 07:55 | Outpatient (REF) | payer OTHER, SELFPAY ==
[2025-08-30 13:18] LABS: MANUAL DIFF FLAG NO
[2025-08-30 13:31] LABS: Hematocrit 42.0 % (37.0-47.0); Hemoglobin 13.4 g/dl (12.0-16.0); Imm Gran Abs Auto 0.02 X10*3/uL (0.00-0.03); Imm Gran Pct Auto 0.3 % (0.0-0.4); Lymphocytes Absolute Auto 2.3 X10*3/uL (1.2-4.9); Mean Corpuscular HGB Conc 31.9 g/dl (31.0-35.0); Mean Corpuscular Hemoglobin 29.3 pg (27.0-33.0); Mean Corpuscular Volume 91.9 fL (80.0-98.0); NRBC Abs Auto 0.000 X10*3/uL (0.0-0.012); NRBC Pct Auto 0.0 /100WBC (0.0-0.2); Platelet Count 401 X10*3/uL (160-400); Red Blood Count 4.57 X10*6/uL (4.20-5.50); White Blood Count 6.1 X10*3/uL (4.8-10.8)
[2025-08-30 14:07] LABS: Erythrocyte Sedimentation Rate 8 MM/HR (0-20)
[2025-09-04 22:54] LABS: Prot Elec - Albumin 4.4 g/dL (3.8-4.8); Prot Elec - Alpha1 0.2 g/dL (0.2-0.3); Prot Elec - Alpha2 0.5 g/dL (0.5-0.9); Prot Elec - Beta 1 0.4 g/dL (0.4-0.6); Prot Elec - Beta 2 0.3 g/dL (0.2-0.5); Prot Elec - Gamma 1.0 g/dL (0.8-1.7); Prot Elec - Total Protein 6.8 g/dL (6.1-8.1)
== END 2025-08-30 07:56 | disposition home or self-care (01) ==
LOC: HO.HKASLDS 07:55
PROVIDERS: PCP Internal Medicine; Visit Provider Student in an Organized Health Care Education/Training Program
DX: M17.0 Bilateral primary osteoarthritis of knee (principal); M35.01 Sjogren syndrome with keratoconjunctivitis; S83.221A Peripheral tear of medial meniscus, current injury, right knee, initial encounter; X58.XXXA Exposure to other specified factors, initial encounter
CPT/HCPCS: 36415; 84165; 85025; 85652; 86140; 86160; 86431